=== PATIENT | female | born 1995 | race African-American/Black ===

== ENCOUNTER 2016-10-07 10:08 | Emergency (ER) | payer OTHER ==
[~2016-10-07] VITALS: Ht 170.2 cm; Wt 104.3 kg
[~2016-10-07 10:08] MED LIST: AMOXICILLIN500 M1 PO; BLM PO; CYCLOBENZAPRINE10 M1 PO; IBUPROFEN800 M1 PO; MEDROL DOSEPAK1 PAC PO; MOTRIN 600 MG600 MG PO; PERCOCET 5-3251 EACH PO; PRILOSEC OTC20 MG PO; TESSALON PERLE100 MG PO; TYLENOL #31 TAB PO
[2016-10-07 10:15] VITALS: BP 114/76
--- NOTE | 2016-10-07 10:28 | ED THROAT/DENTAL COMPLAINT ---
History of Present Illness General Chief Complaint: Sore Throat, Dental Pain Stated Complaint: SORE THROAT Source: patient Exam Limitations: no limitations Vital Signs & Intake/Output Vital Signs & Intake/Output Vital Signs Date Time Temp Pulse Resp B/P B/P Pulse O2 O2 Flow FiO2 Mean Ox Delivery Rate 10/07 1015 97.4 70 20 114/76 98 Room Air Allergies Coded Allergies: shellfish derived (RASH 10/13/15) shrimp (RASH 10/13/15) Reconcile Medications Augmentin (Augmentin 500-125 Tablet) 500 MG-125 MG TABLET 1 TAB PO BID PHARYNGITIS Methylprednisolone. (Medrol) 4 MG TAB.DS.PK 1 DP PO AD INFLAMMATION 6 on day 1 then reduce by one tablet daily until gone Triage Note: PT TO ED C/O SORE THROAT SINCE YESTERDAY. AFEBRILE. Triage Nurses Notes Reviewed? yes Onset: Gradual Duration: constant Timing: recent history Injury Environment: home Severity: moderate Severity Numbers: 5 No Modifying Factors: none : No Patient currently breastfeeds: No HPI: Patient is a 20-year-old female who presents to emergency room with a 24-hour history gradual onset of sore throat and anterior cervical lymph node enlargement complaints. Patient has tried throat lozenges with minimal relief of symptoms. States that eating and drinking makes worse however patient can tolerate with no emesis. Denies any fever or chills cough abdominal pain headache and is otherwise without complaints. (KELLEY PAVON) Past History Travel History Traveled to [place] past 21 day No Medical History Any Pertinent Medical History? 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 No (KELLEY PAVON) Review of Systems Review of Systems Constitutional: Reports: no symptoms. EENTM: Reports: see HPI, throat pain, throat swelling. Respiratory: Reports: no symptoms. Cardiovascular: Reports: no symptoms. GI: Reports: no symptoms. Genitourinary: Reports: no symptoms. Musculoskeletal: Reports: no symptoms. Skin: Reports: no symptoms. Neurological/Psychological: Reports: no symptoms. Hematologic/Endocrine: Reports: no symptoms. Immunologic/Allergic: Reports: see HPI. All Other Systems: Reviewed and Negative (KELLEY PAVON) Physical Exam Physical Exam General Appearance: no apparent distress, alert, awake, comfortable Mouth/Throat: normal mouth inspection, BILATERAL PHARYNGEAL EXUDATES AND SWELLING Comments: Well-developed well-nourished person in no acute distress HEENT: extraocular motion intact, no nystagmus. Pupils equally round and reactive to light and accommodation. Nose is atraumatic. External auditory canal and Tympanic membranes clear. Neck: Supple, BILATERAL ANTERIOR CERVICAL lymphadenopathy, normal range of motion without pain or tenderness Back: Nontender, no CVA tenderness. Cardiovascular: Regular rate and rhythms no murmurs rubs or gallops, normal JVP Respiratory: Chest nontender. No respiratory distress.breath sounds clear to auscultation bilaterally Abdomen: Soft, nontender nondistended, no appreciable organomegaly. Normal bowel sounds. No ascites Extremity: No edema, no calf tenderness to palpation, normal and equal pulses. Neuro: Alert oriented x3, motor sensory normal, Skin: No appreciable rash on exposed skin, skin is warm and dry. Psych: Mood and affect is normal, memory and judgment is normal. Core Measures ACS in differential dx? No Severe Sepsis Present: No Septic Shock Present: No (KELLEY PAVON) Progress Differential Diagnosis: epiglottitis, Ludwigs angina, meningitis, odontogenic abscess, kirit-tonsillar abscess, pharyngeal for. body, stomatitis/gingivitis, strep pharyngitis, tooth fracture Plan of Care: Orders Procedure Date/time Status THROAT CULTURE W/QUICK STREP 10/07 1009 Active Patient will be treated for concerns of pharyngitis no concerns of Satish angina or peritonsillar abscess Culture is pending (KELLEY PAVON) Departure Departure Disposition: HOME OR SELF CARE Condition: Stable Clinical Impression Primary Impression: Pharyngitis Referrals: PATIENT HAS NO PRIMARY CARE DR (PCP/Family) Additional Instructions: As discussed begin the prescription of Magic mouthwash for sore throat, begin the prescription of Augmentin for the full course and Medrol Dosepak for inflammation. Prescriptions are waiting at [facility]. If symptoms worsen return to emergency room. If no better in 3 days follow-up with primary care doctor Departure Forms: Customer Survey General Discharge Information Prescriptions: Current Visit Scripts Methylprednisolone. (Medrol) 1 DP PO AD #1 DP 6 on day 1 then reduce by one tablet daily until gone Augmentin (Augmentin 500-125 Tablet) 1 TAB PO BID #20 TAB (KELLEY PAVON) PA/OPTICAL TECHNICIAN Co-Sign Statement Statement: ED Attending supervision documentation- [] I saw and evaluated the patient. I have also reviewed all the pertinent lab results and diagnostic results. I agree with the findings and the plan of care as documented in the PA's/OPTICAL TECHNICIAN's documentation. x I have reviewed the ED Record and agree with the PA's/OPTICAL TECHNICIAN's documentation. [] Additions or exceptions (if any) to the PAs/OPTICAL TECHNICIAN's note and plan are summarized below: [] (LANIE LUJAN,CHRISTIE)
[2016-10-07] MEDS ORDERED: MEDROL4 M2 PO (10:48)
[2016-10-07] MEDS ORDERED: AUGMENTIN 500-1 EACH PO (10:48)
== END 2016-10-07 11:06 ==
LOC: ERH 10:08
DX: J02.9 Acute pharyngitis, unspecified (principal); Z87.891 Personal history of nicotine dependence